=== PATIENT | male | born 1975 | race Two or more races ===

== ENCOUNTER 2016-12-05 09:57 | Outpatient (CLI) | payer BC | END 2016-12-05 20:12 | disposition home or self-care (01) | LOC: SCT 09:57 | PROVIDERS: ATTEND Family Medicine | DX: J34.2 Deviated nasal septum (principal); R22.0 Localized swelling, mass and lump, head | CPT/HCPCS: 70486-TC ==

== ENCOUNTER 2018-08-16 07:27 | Emergency (ER) | payer BC ==
[~2018-08-16] VITALS: Ht 177.8 cm; Wt 83.9 kg
[2018-08-16 07:30] VITALS: BP_SYST 139
[2018-08-16 09:48] VITALS: BP_SYST 110
== END 2018-08-16 09:48 | disposition home or self-care (01) ==
LOC: SED 07:27
DX: S09.90XA Unspecified injury of head, initial encounter (principal); W50.0XXA Accidental hit or strike by another person, initial encounter; Y93.67 Activity, basketball; Y92.89 Other specified places as the place of occurrence of the external cause; Y99.8 Other external cause status
CPT/HCPCS: 70450-TC; 99284

== ENCOUNTER 2019-11-22 09:08 | Emergency (ER) | payer BC ==
[~2019-11-22] VITALS: Ht 177.8 cm; Wt 81.6 kg
[2019-11-22] MEDS ORDERED: PRO40 PO (09:32)
[2019-11-22 09:33] VITALS: BP_SYST 129
[2019-11-22 09:43] LABS: BASOPHILS % (AUTO) 0.6 % (0.0-2.0); EOSINOPHILS # (AUTO) 0.1 K/uL (0.0-0.4); EOSINOPHILS % (AUTO) 2.1 % (0.0-4.0); HEMOGLOBIN 13.9 g/dL (14.0-18.0); LYMPHOCYTES # (AUTO) 1.8 K/uL (1.0-5.5); LYMPHOCYTES % (AUTO) 26.2 % (20.5-51.5); MEAN CORPUSCULAR HEMOGLOBIN 29 pg (27-31); MEAN CORPUSCULAR HGB CONC 34 % (32-36); MEAN CORPUSCULAR VOLUME 87 fL (79.0-98.0); MONOCYTES # (AUTO) 0.7 K/uL (0.0-1.0); MONOCYTES % (AUTO) 9.8 % (1.7-9.3); NEUTROPHILS # (AUTO) 4.1 K/uL (1.8-7.7); NEUTROPHILS % (AUTO) 61.3 % (40.0-70.0); PLATELET COUNT (AUTO) 379 K/uL (130-430); RED BLOOD CELL COUNT(AUTO) 4.72 MIL/uL (4.2-6.2); WHITE BLOOD COUNT (AUTO) 6.7 K/uL (4.8-10.8)
[2019-11-22] MEDS ORDERED: NACL 0.9% 1,000 ML IV ONE (09:45)
[2019-11-22 09:50] LABS: CREATININE 1.08 mg/dL (0.55-1.30); POTASSIUM 4.1 mmol/L (3.5-5.1)
[2019-11-22 09:56] LABS: PROTHROMBIN TIME 9.9 SECS (9.5-12.5)
[2019-11-22 09:57] LABS: TOTAL BILIRUBIN 0.5 mg/dL (0.0-1.0)
[2019-11-22 11:45] VITALS: BP_SYST 129
== END 2019-11-22 11:45 | disposition home or self-care (01) ==
LOC: SED 09:08
DX: T67.5XXA Heat exhaustion, unspecified, initial encounter (principal); X58.XXXA Exposure to other specified factors, initial encounter; Y93.89 Activity, other specified; Y92.89 Other specified places as the place of occurrence of the external cause; Y99.8 Other external cause status
CPT/HCPCS: 36415; 80053; 82550; 83605; 84484; 85025; 85610; 85730; 96360; 99283; J7030

== ENCOUNTER 2022-07-12 21:53 | Emergency (ER) | payer BC ==
[~2022-07-12] VITALS: Ht 177.8 cm; Wt 81.6 kg
[~2022-07-12 21:53] MED LIST: PRO40 PO
[2022-07-12 22:10] VITALS: BP_SYST 143
[2022-07-12] MEDS ORDERED: ONDA-8 TL (23:37)
[2022-07-12] MEDS ORDERED: NAPR-1172 PO (23:37)
[2022-07-13 00:01] VITALS: BP_SYST 134
== END 2022-07-12 23:45 | disposition home or self-care (01) ==
LOC: SED 21:53
DX: F07.81 Postconcussional syndrome (principal); R11.0 Nausea; H53.8 Other visual disturbances; Z79.899 Other long term (current) drug therapy
CPT/HCPCS: 70450-TC; 76376; 99284